=== PATIENT | female | born 1935 | race Caucasian/White ===

== ENCOUNTER → 2023-11-23 11:03 | Outpatient (REF) | payer MEDICARE, OTHER, SELFPAY ==
[2023-11-23 11:31] LABS: Ionized Calcium 1.29 mMOL/L (1.15-1.33)
[2023-11-23 12:06] LABS: ALT (SGPT) 16 U/L (0-35); AST (SGOT) 24 U/L (14-36); Albumin 3.8 g/dl (3.5-5.0); Alkaline Phosphatase 96 U/L (38-126); Blood Urea Nitrogen 19 mg/dl (7-17); Calcium 9.9 mg/dl (8.4-10.2); Carbon Dioxide 27 mmol/L (22-30); Chloride 102 mmol/L (98-107); Glucose 128 mg/dl (70-99); Potassium 4.2 mmol/L (3.5-5.1); Sodium 131 mmol/L (135-145); Total Bilirubin 0.6 mg/dl (0.2-1.3); Total Protein 6.4 g/dl (6.3-8.2); eGFR 48.03
[2023-11-25 10:54] LABS: Intact PTH 88.1 pg/ml (13.6-85.8)
== END ==
LOC: REG 11:03
PROVIDERS: ATTENDING PHYSICIAN Internal Medicine Endocrinology, Diabetes & Metabolism; FAMILY PHYSICIAN Internal Medicine Geriatric Medicine; REFERRING PHYSICIAN Internal Medicine Cardiovascular Disease
DX: E21.0 Primary hyperparathyroidism (principal)
CPT/HCPCS: 36415; 80053; 82330; 83970

== ENCOUNTER → 2024-01-12 11:58 | Outpatient (REF) | payer MEDICARE, OTHER, SELFPAY ==
[2024-01-12 12:34] LABS: % Basophils 0.5 % (0-2); % Eosinophils 2.5 % (0-6); % Immature Granulocytes 0.5 % (0-0.5); % Monocytes 8.1 % (1.7-9.3); % Neutrophils 65.4 % (42.2-75.2); Absolute Eosinophils 0.2 10^3/uL (0-0.7); Absolute Lymphocytes 1.7 10^3/uL (1.2-3.4); Absolute Monocytes 0.6 10^3/uL (0.1-0.6); Hematocrit 34.5 % (37.0-47.0); Hemoglobin 11.4 g/dL (12.0-16.0); Mean Corpuscular Hgb 29.6 pg (27.0-31.0); Mean Corpuscular Volume 89.6 fL (81.0-99.0); Nucleated Red Blood Cells % 0 %; Platelet Count 305 10^3/uL (130-400); Red Blood Cell Count 3.85 10^6/uL (4.20-5.40); Red Cell Dist. Width 13.1 % (11.5-14.5); White Blood Cell Count 7.6 10^3/uL (4.8-10.8)
[2024-01-12 13:01] LABS: Albumin 4.3 g/dl (3.5-5.0); Blood Urea Nitrogen 21 mg/dl (7-17); Calcium 10.4 mg/dl (8.4-10.2); Carbon Dioxide 28 mmol/L (22-30); Chloride 101 mmol/L (98-107); Glucose 130 mg/dl (70-99); Phosphorus 3.2 mg/dl (2.5-4.5); Potassium 4.2 mmol/L (3.5-5.1); Sodium 135 mmol/L (135-145); eGFR 48.03
== END ==
LOC: REG 11:58
PROVIDERS: ATTENDING PHYSICIAN Internal Medicine Geriatric Medicine
DX: I10 Essential (primary) hypertension (principal); E78.00 Pure hypercholesterolemia, unspecified; E11.9 Type 2 diabetes mellitus without complications; I11.9 Hypertensive heart disease without heart failure; E21.3 Hyperparathyroidism, unspecified
CPT/HCPCS: 36415; 80069; 85025